=== PATIENT | male | born 1995 | race Caucasian/White ===

== ENCOUNTER 2016-07-13 06:14 | Emergency (ER) | payer BC ==
[2016-07-13 06:21] VITALS: BP 160/83; PULSE 93; RESP 18; TEMP 97.7; O2SAT 96
--- NOTE | 2016-07-13 06:57 | EDPHY ---
H & P Time Seen by Provider: 07/13/16 06:43 HPI/ROS: CHIEF COMPLAINT: Worried about frostbite HISTORY OF PRESENT ILLNESS: This 21-year-old man presents with numbness in both toes after downhill skiing yesterday. He was [place] the [employer] [place] and did not have lunch and didn't go in at all to warm up his feet because the skiing was so good. In the car ride home he noted it took longer than normal for his feet to warm up. Today notes that he still has some numbness and tingling in his 2 big toes and presents for evaluation. REVIEW OF SYSTEMS: No trauma, no blisters, no redness or streaking, no fevers. PAST MEDICAL HISTORY: Negative Social history: [employer] student General Appearance: Alert and conversant, cooperative. Skin on both feet is normal without evidence of blister or eschar or discoloration. Both feet including both toes are warm dry and well perfused. Temperature is normal palpation. Sensation is preserved to light touch as well as to sharp and dull including on both big toes. Normal capillary refill and normal motor function. Emergency Department course/MDM: Patient likely has bates nip without evidence of substantial damage to deeper tissues. He is warned that symptoms could last for several weeks or longer. He is warned about returning if he develops blisters or other skin changes. He is warned that he needs to keep his feet warm and not cold while in the recovery phase, until symptoms have completely resolved. Smoking Status: Never smoked Constitutional: Initial Vital Signs Temperature (C) 36.5 C 07/13/16 06:19 Heart Rate 93 07/13/16 06:19 Respiratory Rate 18 07/13/16 06:19 Blood Pressure 160/83 H 07/13/16 06:19 O2 Sat (%) 96 07/13/16 06:19 O2 Delivery Mode Room Air Allergies/Adverse Reactions: No Known Allergies Allergy (Unverified 09/13/14 14:01) Home Medications: Medication Instructions Recorded NK [No Known Home Meds] 09/13/14 MDM/Departure - Depart Disposition: Home, Routine, Self-Care Clinical Impression: Frostnip Condition: Good Instructions: Ibuprofen (By mouth) Additional Instructions: Drink plenty of fluids. Keep feet warm until normal feeling returns, as discussed. Oral ibuprofen 600mg by mouth every 6-8 hours for the next 3-5 days as needed. Referrals: [facility] [Provider Group] - As per Instructions
== END 2016-07-13 07:00 | disposition home or self-care (01) ==
DX: T33.831A Superficial frostbite of right toe(s), initial encounter (principal); T33.832A Superficial frostbite of left toe(s), initial encounter; V00.321A Fall from snow-skis, initial encounter; Y92.89 Other specified places as the place of occurrence of the external cause; Y93.23 Activity, snow (alpine) (downhill) skiing, snowboarding, sledding, tobogganing and snow tubing